=== PATIENT | female | born 1970 | race Two or more races ===

== ENCOUNTER 2023-03-26 22:13 | Emergency (ER) | payer OTHER ==
[~2023-03-26] VITALS: Ht 162.6 cm; Wt 84.8 kg
[2023-03-26] MEDS ORDERED: LOSARTAN-HCTZ1 EAC1 PO (22:29)
[2023-03-26] MEDS ORDERED: GLUMETZA1000 MG PO (22:29)
[2023-03-26] MEDS ORDERED: GLIPIZIDE XL5 MG PO (22:29)
[2023-03-26] MEDS ORDERED: LEVOFLOXACIN750 MG PO (22:30)
[2023-03-26 23:38] LABS: HEMOGLOBIN 15.1 g/dL (12.0-15.00); MEAN CELL VOLUME 93.2 fL (80.00-100.00); MEAN CORPUSCULAR HEMOGLOBIN 31.9 pg (27.00-32.0); MEAN CORPUSCULAR HGB CONC 34.3 g/dl (32.0-36.0); PLATELET COUNT 257 K/uL (150-450); RED BLOOD COUNT 4.72 M/uL (4.00-6.00); RED CELL DISTRIBUTION WIDTH 14.6 % (11.5-14.5)
[2023-03-26] MEDS ORDERED: DICLOFENAC SODI75 MG PO (23:46)
== END 2023-03-27 00:23 | disposition home or self-care (01) ==
LOC: ER 22:14
PROVIDERS: General Practice
DX: L03.114 Cellulitis of left upper limb (principal); E11.9 Type 2 diabetes mellitus without complications; Z79.84 Long term (current) use of oral hypoglycemic drugs; I10 Essential (primary) hypertension